=== PATIENT | male | born 1995 ===

== ENCOUNTER 2016-08-08 08:08 | Emergency (ER) | payer SELFPAY ==
--- NOTE | 2016-08-08 08:39 | UC ---
Skin Complaint HPI - HPI Summary HPI Summary: c/o getting hit with a metal pipe just above upper lip this morning about 2 AM while at work. 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 Was bleeding at the time. No longer bleeding . Has tooth pain. Tooth intact. - History of Current Complaint Chief Complaint: UCLaceration Time Seen by Provider: 08/08/16 08:30 Stated Complaint: HIT IN MOUTH W/C Hx Obtained From: Patient, Rn Quality Onset/Duration: Sudden Onset Timing: Constant Onset Severity: Moderate Current Severity: Mild Aggravating: Touch Alleviating: OTC Meds, Cold Compresses Associated Signs & Symptoms: Positive: Negative Related History: Trauma - Allergy/Home Medications Allergies/Adverse Reactions: Allergies Allergy/AdvReac Type Severity Reaction Status Date / Time No Known Allergies Allergy Verified 08/08/16 08:22 Home Medications: Home Medications Ibuprofen TAB* [Advil TAB*] 400 mg PO Q6H PRN 08/08/16 [History Confirmed ] Review of Systems Constitutional: Negative Skin: Other - lip trauma Eyes: Negative ENT: Negative Respiratory: Negative Cardiovascular: Negative Gastrointestinal: Negative Genitourinary: Negative Motor: Negative Neurovascular: Negative Musculoskeletal: Negative Neurological: Negative Psychological: Negative All Other Systems Reviewed And Are Negative: Yes PMH/Surg Hx/FS Hx/Imm Hx Previously Healthy: Yes Endocrine History Of: Denies: Diabetes - Surgical History Surgical History: None - Family History Known Family History: Positive: None - Social History Occupation: Employed Full-time Lives: With Family Alcohol Use: None Substance Use Type: None Smoking Status (MU): Never Smoked Tobacco - Immunization History Most Recent Tetanus Shot: unknown Physical Exam Triage Information Reviewed: Yes Appearance: Well-Appearing, No Pain Distress, Well-Nourished Vital Signs: Initial Vital Signs Temp 99.6 F 08/08/16 08:22 Pulse 79 08/08/16 08:22 Resp 18 08/08/16 08:22 BP 135/75 08/08/16 08:22 Pulse Ox 100 08/08/16 08:22 Vital Signs Reviewed: Yes Eye Exam: Normal ENT Exam: Normal Dental: Positive: Percussion Tenderness @, Bleeding - upper lip skin tear / abrasion with moderate upper lip swelling and tenderness to palpation. Negative : Gross Decay/Caries @, Dental Fracture @, Abscess @, Cellulitis @, Cervical Lymphadenopathy Neck exam: Normal Neck: Positive: 1 Respiratory Exam: Normal Cardiovascular Exam: Normal Musculoskeletal Exam: Normal Neurological Exam: Normal Psychological Exam: Normal Skin Exam: Normal Course/Dx - Course Course Of Treatment: No active bleed at this time. Tooth intact that he is having pain in . Advised patient and his boss's if the tooth starts to have more give / pain to go to Dentist / ENT - Diagnoses Provider Diagnoses: Upper lip and tooth trauma / skin tear Discharge - Discharge Plan Condition: Good Disposition: HOME Patient Education Materials: Acute Dental Trauma (ED) Referrals: Leon Samano MD [Medical Doctor] - 3 Days (ENT referral : If swelling not improved in the mouth also if tooth hurts please see dentist ) Images Dental: 1 - most tender. attached. very minimal movement with palpation. gums intact. 2 - swelling / skin tear 3 - abrasion / milkd swelling
[2016-08-08] MEDS ORDERED: Tetan/Diph/Pertus SYR(Tdap)* 0.5 ML SYR(BOOSTRIX) use SYR IM ONE (08:48)
== END 2016-08-08 09:08 | disposition home or self-care (01) ==
LOC: UCCORT 08:08
DX: S01.511A Laceration without foreign body of lip, initial encounter (principal); W22.8XXA Striking against or struck by other objects, initial encounter; Y92.79 Other farm location as the place of occurrence of the external cause; K08.89 Other specified disorders of teeth and supporting structures
CPT/HCPCS: 90471; 90715; 99201; G0463